=== PATIENT | female | born 1985 | race Caucasian/White ===

== ENCOUNTER 2021-04-14 11:51 | Emergency (ER) | payer MEDICAID ==
[~2021-04-14] VITALS: Ht 154.9 cm; Wt 111.6 kg
[2021-04-14 11:56] VITALS: BP_SYST 143
--- NOTE | 2021-04-14 12:03 | NUR ---
Patient triaged and placed in waiting room. VSS and patient appears in no acute distress at this time. Accompanied by self , awaiting available bed, and MD notified of need for MSE.
--- NOTE | 2021-04-14 12:03 | NUR ---
Pt brought by self , ambulatory, A&Ox4, pt presents to ER with skin rask on L middle back radiating to abdominal area, pt afebrile, will cont to monitor.
--- NOTE | 2021-04-14 12:05 | NUR ---
Dr Flowers evaluating patient at bedside
[2021-04-14] MEDS ORDERED: ACYC400T19 PO (12:15)
[2021-04-14 12:21] VITALS: BP_SYST 143
--- NOTE | 2021-04-14 12:22 | NUR ---
Patient given written and verbal discharge instructions and verbalizes understanding. ER MD discussed with patient the results and treatment provided. Patient in stable condition. ID arm band removed. Rx of Acyclovir given. Patient educated on pain management and to follow up with PMD. Pain Scale 3/10 tolerable for patient . Opportunity for questions provided and answered. Medication side effect fact sheet provided.
== END 2021-04-14 12:22 | disposition home or self-care (01) ==
LOC: SED 11:51
DX: B02.9 Zoster without complications (principal)
CPT/HCPCS: 99283